=== PATIENT | female | born 1970 | race Caucasian/White ===

== ENCOUNTER 2020-08-09 15:50 | Outpatient (CLI) | payer OTHER, SELFPAY ==
--- NOTE | ~2020-08-09 | MM_ITS ---
EXAMINATION: MM screening [facility] BI w justin HISTORY: Screening mammogram TECHNIQUE: Craniocaudal and mediolateral oblique 3-D tomosynthesis images were obtained and synthetic 2-D images were generated. CAD analysis was submitted and interpreted. COMPARISON: 08/05/2017, 07/22/2017, 12/18/2014 BREAST PARENCHYMAL COMPOSITION: The breasts are almost entirely fatty. FINDINGS: There is no evidence of suspicious mass, calcification, or architectural distortion to sugg est malignancy in either breast. There has been no suspicious interval change. IMPRESSION: 1. No mammographic evidence of malignancy. 2. Recommend routine screening mammography in one year. BI-RADS Category 1: Negative Reviewed, dictated and finalized at location A. GER SHIFT
== END 2020-08-09 15:51 | disposition home or self-care (01) ==
LOC: ANHIMG 15:58
PROVIDERS: PCP Family Medicine; Visit Provider Physician Assistant
DX: Z12.31 Encounter for screening mammogram for malignant neoplasm of breast (principal)
CPT/HCPCS: 77063; 77067

== ENCOUNTER 2020-08-09 16:27 | Outpatient (CLI) | payer OTHER, SELFPAY ==
--- NOTE | ~2020-08-09 | MR_ITS ---
EXAMINATION: MR lumbar spine wo con DATE: 08/09/2020 17:13 INDICATION: Low back pain. TECHNIQUE: Magnetic resonance imaging (MRI) of the lumbar spine was performed without intravenous con trast. Sequences included sagittal T2-weighted FSE, sagittal T2-weighted FS FSE, sagittal T1-weighted FSE, and axial T2-weighted FSE. COMPARISON: Lumbar spine MRI 12/23/2011 FINDINGS: There is 7 degrees levocurvature of lumbar spine. Vertebral body heights are normal. There is a hemangioma in L2 vertebral body. There is mildly decreased disc height at L4-L5 and moderately d ecreased disc height at L5-S1. The distal spinal cord signal intensity is normal. The conus medullari s is at L1-L2. The following disc levels are specifically discussed: L1-L2: There is a right central protrusion. There is mild bilateral facet joint osteoarthritis. There is no neural foraminal stenosis. There is no central canal stenosis. L2-L3: The disc does not extend beyond the endplate margin. There is mild bilateral facet joint osteo arthritis. There is no neural foraminal stenosis. There is no central canal stenosis. L3-L4: The disc does not extend beyond the endplate margin. There is mild bilateral facet joint osteo arthritis. There is no neural foraminal stenosis. There is no central canal stenosis. L4-L5: The disc is bulging and has an annular fissure. There is severe right and moderate left facet joint osteoarthritis. There is mild bilateral neural foraminal stenosis. There is mild central canal stenosis. L5-S1: The disc is bulging and has an annular fissure. There is severe bilateral facet joint osteoart hritis. There is mild bilateral neural foraminal stenosis. There is mild central canal stenosis. IMPRESSION: 1. Moderate lower lumbar spondylosis, worsened from 12/23/2011. Reviewed, dictated and finalized at location B. LINE ENG[employer]
== END 2020-08-09 16:28 ==
PROVIDERS: PCP Family Medicine
DX: M47.896 Other spondylosis, lumbar region (principal)
CPT/HCPCS: 72148

== ENCOUNTER → 2021-01-15 07:07 | Outpatient (CLI) | payer OTHER, SELFPAY ==
[2021-01-15 23:43] LABS: SARS-CoV-2 RNA PCR Negative
== END ==
PROVIDERS: PCP Family Medicine; Visit Provider Family Medicine
DX: Z20.822 Contact with and (suspected) exposure to COVID-19 (principal); R68.89 Other general symptoms and signs
CPT/HCPCS: C9803; U0003; U0005

== ENCOUNTER 2023-01-26 10:28 | Outpatient (CLI) | payer OTHER, SELFPAY ==
--- NOTE | ~2023-01-26 | US_ITS ---
EXAMINATION: US thyroid DATE: 01/26/2023 11:45 INDICATION: Other fatigue. TECHNIQUE: Multiple ultrasound images of the thyroid were obtained. COMPARISON: None. FINDINGS: The right thyroid lobe measures 4.3 x 1.7 x 2.0 cm. The left thyroid lobe measures 5.0 x 1.9 x 2.3 c m. The thyroid is diffusely heterogeneous and hypoechoic with increased vascularity. In the left thy roid lobe, there is a 2.2 cm solid, isoechoic, wider than tall nodule with smooth margin without echo genic foci (TI-RADS TR3). IMPRESSION: 1. Heterogeneous, hypervascular thyroid, consistent with chronic lymphocytic (Emma) thyroiditis. 2. Left thyroid nodule. Thyroid ultrasound is recommended in one year. Reviewed, dictated and finalized at location A. IMPRESSION: 1. Heterogeneous, hypervascular thyroid, consistent with chronic lymphocytic (H ashimoto) thyroiditis. 2. Left thyroid nodule. Thyroid ultrasound is recommended in one year.
== END 2023-01-26 10:29 | disposition home or self-care (01) ==
PROVIDERS: PCP Family Medicine; Visit Provider Physician Assistant
DX: R53.83 Other fatigue (principal); E04.9 Nontoxic goiter, unspecified
CPT/HCPCS: 76536

== ENCOUNTER 2023-03-04 10:42 | Outpatient (CLI) | payer OTHER, SELFPAY ==
--- NOTE | ~2023-03-04 | XR_ITS ---
XR tibia fibula RT 2V DATE: 03/04/2023 11:17 INDICATION: Dog bite; evaluate for osteomyelitis TECHNIQUE: AP and lateral views of the right lower leg COMPARISON: None FINDINGS: No subcutaneous emphysema is noted. Approximately 3 x 6 mm calcific density is noted at the anterior aspect of the distal shaft of the ti kavya on the lateral view, which may represent nonspecific soft tissue calcification or foreign body. No tibial or fibular fracture or dislocation, periosteal reaction or bone destruction. No radiographi c evidence of osteomyelitis is detected. Normal alignment at the knee and ankle joints. IMPRESSION: Small calcific density anterior to the distal tibial shaft, of uncertain significance; cl inical correlation is advised No significant bony abnormality of the tibia or fibula or evidence of osteomyelitis Reviewed, dictated and finalized at location [] IMPRESSION: Small calcific density anterior to the distal tibial shaft, of unce rtain significance; clinical correlation is advised No significant bony abnormality of the tibia or fibula or evidence of osteomyel itis
== END 2023-03-04 10:43 | disposition home or self-care (01) ==
PROVIDERS: PCP Family Medicine; Visit Provider Physician Assistant
DX: S81.851A Open bite, right lower leg, initial encounter (principal); M85.861 Other specified disorders of bone density and structure, right lower leg; W54.0XXA Bitten by dog, initial encounter
CPT/HCPCS: 73590

== ENCOUNTER 2023-03-25 10:22 | Outpatient (CLI) | payer OTHER, SELFPAY ==
--- NOTE | ~2023-03-25 | US_ITS ---
EXAMINATION: US soft tissue LE RT DATE: 03/25/2023 11:17 INDICATION: Dog bite to the right lower leg TECHNIQUE: Multiple ultrasound grayscale images of the region of concern at the right lower leg were obtained. COMPARISON: None. FINDINGS: There is reticulated pattern of edema in the subcutaneous fat extending deep the from the skin surfac e likely representing the site of to the reported puncture injury. The edema tracks away from the site of the puncture injury along the superficial muscular fascia. The re is an adjacent approximately 10 x 10 x 5 mm region of decreased echogenicity extending to the musc ular fascia into one of the muscles of the lateral right calf. There is mild hyperemia both within an d surrounding this region of decreased echogenicity. No organized fluid collections to suggest absces s. No foci of acoustic shadowing to suggest a solid foreign body. IMPRESSION: 1. Edema and hyperemia in the subcutaneous fat and small focus in the deeper musculature in the in t he region of a puncture wound at the skin surface consistent with a soft tissue contusion with focal muscle injury potentially also with associated cellulitis and/or myositis but no drainable abscess or foreign body. Reviewed, dictated and finalized at location A. IMPRESSION: 1. Edema and hyperemia in the subcutaneous fat and small focus in the deeper m usculature in the in the region of a puncture wound at the skin surface consist ent with a soft tissue contusion with focal muscle injury potentially also with associated cellulitis and/or myositis but no drainable abscess or foreign body .
--- NOTE | ~2023-03-25 | US_ITS ---
EXAMINATION: US venous doppler LE RT DATE: 03/25/2023 11:16 INDICATION: Right lower limb pain and swelling TECHNIQUE: Parada scale images without and with compression and Doppler images of the right lower extre mity veins were obtained. COMPARISON: None FINDINGS: The right common femoral vein, profunda femoral vein, femoral vein, popliteal vein, peronea l trunk, posterior tibial veins, and greater saphenous vein are patent. IMPRESSION: 1. Patent right lower extremity veins. No evidence of deep venous thrombosis. Reviewed, dictated and finalized at location []
== END 2023-03-25 10:23 | disposition home or self-care (01) ==
PROVIDERS: PCP Family Medicine; Visit Provider Physician Assistant
DX: S81.859A Open bite, unspecified lower leg, initial encounter (principal); M79.89 Other specified soft tissue disorders; W54.0XXA Bitten by dog, initial encounter
CPT/HCPCS: 76882; 93971

== ENCOUNTER 2023-12-08 09:01 | Outpatient (CLI) | payer OTHER, SELFPAY ==
[2023-12-08 10:54] LABS: Influenza A QL RT-PCR Negative (Negative); Influenza B QL RT-PCR Negative (Negative); RSV RNA, RT-PCR Negative (Negative); SARS-CoV-2 RNA PCR Negative (Negative)
== END 2023-12-08 09:02 | disposition home or self-care (01) ==
LOC: ANHLAB 09:03
PROVIDERS: PCP Family Medicine; Visit Provider Physician Assistant
DX: J02.9 Acute pharyngitis, unspecified (principal); Z20.822 Contact with and (suspected) exposure to COVID-19
CPT/HCPCS: 87637

== ENCOUNTER 2024-04-27 07:52 | Outpatient (CLI) | payer OTHER, SELFPAY ==
--- NOTE | ~2024-04-27 | MM_ITS ---
EXAMINATION: MM screening [facility] BI w justin HISTORY: Screening TECHNIQUE: Craniocaudal and mediolateral oblique 3-D tomosynthesis images were obtained and synthetic 2-D images were generated. CAD analysis was submitted and interpreted. COMPARISON: No prior mammogram is available for comparison at this institution. BREAST PARENCHYMAL COMPOSITION: Comparison to multiple prior studies sequentially, with oldest review ed study dated 12/18/2014. FINDINGS: There are developing low-density masses in the upper inner quadrant of the right breast, mi ddle third. The left breast is stable without evidence for malignancy. IMPRESSION: 1. Developing right breast masses. 2. Additional mammographic views and possible breast ultrasound are recommended. BI-RADS Category 0: Incomplete: Needs additional imaging evaluation. Reviewed, dictated and finalized at location B. IMPRESSION: 1. Developing right breast masses. 2. Additional mammographic views and possible breast ultrasound are recommended . BI-RADS Category 0: Incomplete: Needs additional imaging evaluation.
== END 2024-04-27 07:53 | disposition home or self-care (01) ==
LOC: ANHIMG 07:53
PROVIDERS: PCP Family Medicine; Visit Provider Physician Assistant
DX: Z12.31 Encounter for screening mammogram for malignant neoplasm of breast (principal); R92.8 Other abnormal and inconclusive findings on diagnostic imaging of breast
CPT/HCPCS: 77063; 77067

== ENCOUNTER 2024-05-05 10:14 | Outpatient (CLI) | payer OTHER, SELFPAY ==
--- NOTE | ~2024-05-05 | MMUS_ITS ---
EXAMINATION: MM diagnostic [facility] RT w justin, US breast RT complete HISTORY: Follow-up right breast asymmetries TECHNIQUE: Additional 3-D tomosynthesis images of the right breast were performed and synthetic 2-D i mages were generated. CAD analysis was submitted and interpreted. High resolution complete right jordon st ultrasound was performed. COMPARISON: 04/27/2024 BREAST PARENCHYMAL COMPOSITION: Not dense: There are scattered areas of fibroglandular density. FINDINGS: MAMMOGRAPHIC FINDINGS: There is a 5 mm circumscribed mass in the upper inner quadrant of the right breast, middle third. The re are no suspicious calcifications or architectural distortion. ULTRASOUND: Complete US of all 4 quadrants of the right breast and retroareolar region was reviewed. At 2:00, 5 c m from the nipple there is an oval circumscribed parallel oriented hypoechoic oval mass with thin cap korey measuring 6 mm. No internal vascularity or posterior features, likely benign. IMPRESSION: 1. Probable benign 6 mm right breast mass at 2:00, 5 cm from the nipple. 2. Recommend 6 month follow-up diagnostic right mammogram and Limited right breast ultrasound BI-RADS category 3, probably benign findings. Reviewed, dictated and finalized at location B. IMPRESSION: 1. Probable benign 6 mm right breast mass at 2:00, 5 cm from the nipple. 2. Recommend 6 month follow-up diagnostic right mammogram and Limited right irena ast ultrasound BI-RADS category 3, probably benign findings.
== END 2024-05-05 10:15 | disposition home or self-care (01) ==
LOC: ANHIMG 10:15
PROVIDERS: PCP Family Medicine; Visit Provider Student in an Organized Health Care Education/Training Program
DX: R92.8 Other abnormal and inconclusive findings on diagnostic imaging of breast (principal)
CPT/HCPCS: 76641; 77061; 77065; G0279

== ENCOUNTER 2024-05-23 10:39 | Outpatient (CLI) | payer OTHER, SELFPAY ==
--- NOTE | ~2024-05-23 | US_ITS ---
EXAMINATION: US thyroid DATE: 05/23/2024 12:00 INDICATION: Nontoxic thyroid nodule. TECHNIQUE: Multiple ultrasound images of the thyroid were obtained. COMPARISON: Ultrasound 01/26/2023 FINDINGS: The right thyroid lobe measures 4.1 x 1.4 x 2.2 cm. The left thyroid lobe measures 4.6 x 1.8 x 2.2 c m. The thyroid demonstrates coarsened echotexture. Vascularity is normal. In the left thyroid lobe, there is a 2.5 cm solid, hypoechoic, wider than tall nodule with lobulated margin without echogenic f oci (TI-RADS TR4). IMPRESSION: 1. Heterogeneous thyroid, likely chronic lymphocytic (Emma's) thyroiditis. 2. Left thyroid nodule. Ultrasound-guided fine needle aspiration is recommended. Reviewed, dictated and finalized at location A. IMPRESSION: 1. Heterogeneous thyroid, likely chronic lymphocytic (Emma's) thyroiditis. 2. Left thyroid nodule. Ultrasound-guided fine needle aspiration is recommended .
== END 2024-05-23 10:40 | disposition home or self-care (01) ==
PROVIDERS: PCP Family Medicine; Visit Provider Physician Assistant
DX: E04.1 Nontoxic single thyroid nodule (principal)
CPT/HCPCS: 76536

== ENCOUNTER 2024-07-13 12:16 | Outpatient (CLI) | payer OTHER, SELFPAY ==
--- NOTE | ~2024-07-13 | US_ITS ---
EXAMINATION: US FNA w image guidance DATE: 07/13/2024 13:26 INDICATION: Nontoxic single thyroid nodule TECHNIQUE: A time-out was performed to verify the patient's name, date of , and procedure to be performed . The procedure and its benefits and risks were discussed with the patient. Risks specifically discus sed included bleeding and infection. The patient understood the risks and agreed to proceed. The neck was prepped and draped in the usual sterile manner. 3 mL 1% lidocaine was used for local anesthesia . 6 passes were made with a 25G needle into the lesion. Appropriate needle location was documented with continuous sonographic guidance. A sterile bandage was applied. There were no immediate compli cations. FINDINGS: Grayscale ultrasound images demonstrate biopsy needles advanced into a 2.4 cm heterogeneously hypoech oic solid mass in the left thyroid lobe. IMPRESSION: 1. Successful ultrasound-guided fine needle aspiration of a 2.4 cm TI RADS 4 left thyroid nodule. Reviewed, dictated and finalized at location A. IMPRESSION: 1. Successful ultrasound-guided fine needle aspiration of a 2.4 cm TI RADS 4 l eft thyroid nodule.
== END 2024-07-13 12:17 | disposition home or self-care (01) ==
LOC: ANHIMG 12:16
PROVIDERS: PCP Family Medicine; Visit Provider Physician Assistant
DX: E04.1 Nontoxic single thyroid nodule (principal)
CPT/HCPCS: 10005; 88172; 88173; 88305

== ENCOUNTER 2024-12-05 08:56 | Outpatient (CLI) | payer OTHER, SELFPAY ==
--- NOTE | ~2024-12-05 | MMUS_ITS ---
EXAMINATION: MM diagnostic edson RT w justin, US breast RT limited HISTORY: Six-month follow-up TECHNIQUE: 3-D tomosynthesis images of the right breast were performed and synthetic 2-D images were generated. CAD analysis was submitted and interpreted. High resolution limited right breast ultrasoun d was performed. COMPARISON: 05/05/2024, 04/27/2024, 08/09/2020 BREAST PARENCHYMAL COMPOSITION:Not Dense. There are scattered areas of fibroglandular density. FINDINGS: MAMMOGRAPHIC FINDINGS: Parenchymal pattern right breast is unchanged. Stable 4-5 mm circumscribed mass at the inner right br east. ULTRASOUND: At the 2:00 position right breast, 5 cm from the nipple, there is a stable 5 mm hypoechoic wider than tall circumscribed mass. No posterior shadowing. IMPRESSION: Stable 5 mm mass at the 2:00 position right breast, as detailed above. BI-RADS Category 2: Benign finding(s). Reviewed, dictated and finalized at location M. IMPRESSION: Stable 5 mm mass at the 2:00 position right breast, as detailed above. BI-RADS Category 2: Benign finding(s).
--- OUTSIDE RECORDS SUMMARY | 2024-12-05 09:58 | XMS_ITS | Clinical Summary ---
Author Organization [employer] Address [address] [place] [address] Care Team Providers Care Foam Molder Name Role Phone Raisa Reynolds MD Primary Care Provider U segundo Source Comments [facility],non-owned Affiliates and Associated Physician Practices is amultiple site organization consisting of ambulatory clinics and hospital sitesin [place], [place], [place] and [place]. This disclosure is being madepursuant to the Care Everywhere program and may not contain all information available regarding this patient. Last updated 18.[facility] Allergies No known active allergies Medications * Be aware that medications may not be up to date on this document. Alwaysverify current medications with the patient. Medication Sig Dispensed Refills Start Date End Date Status traZODone (Desyrel) 50 MG tablet Take 1 (one) tablet by mouth once daily Active meloxicam (Mobic) 15 MG tablet Take 1 (one) tablet by mouth once daily Active ipratropium (Atrovent) 0.03 % nasal spray [place] 2 sprays into each nostril 2 times daily 03/29/2024 Active fexofenadine (Marie) 60 MG tablet Take 1 (one) tablet by mouth every 12 hours 01/05/2024 Active estradiol (Estrace) 1 MG tablet Take 1 (one) tablet by mouth once daily 07/18/2024 Active albuterol HFA (Proventil; Ventolin; Proair) 108 (90 Base) MCG/ACT inhaler Inhale 2 (two) puffs by mouth as needed Active acetaminophen (Tylenol) 500 MG tablet Take 2 (two) tablets by mouth every 6 hours as needed Active oxyCODONE, immediate release, (Roxicodone) 5 MG tabletIndications:T hyroid nodule Take 1 (one) tablet by mouth every 6 hours as needed for Pain 12 tablet 09/15/2024 Active Additional Information Patient not taking.Reported on 10/05/2024 fluticasone propionate (Flonase) 50 MCG/ACT nasal spray [place] 1 (one) spray into each nostril 2 times daily 09/11/2024 Active levothyroxine (Synthroid) 25 MCG tablet Take 1 (one) tablet by mouth once daily 90 tablet 4 10/05/2024 Active Active Problems Problem Noted Date Diagnosed Date Thyroid nodule 07/29/2024 Encounters Date Type Department Care Team Description 10/05/2024 1:40 PM MOLD DESIGNER - 10/05/2024 11:59 PM MOLD DESIGNER Hospital Encounter [facility] [address] [place] [address] Discharge Disposition: Home or Self Care 10/05/2024 1:00 PM MOLD DESIGNER Office Visit [facility] [address] [place] [address] [phone] Harshad Solo MD Thyroid nodule (Primary Dx) 10/05/2024 Orders Only [facility] [address] [place] [address] [phone] Harshad Solo MD Abnormal serum thyroid stimulating hormone (TSH) level ; History of lobectomy of thyroid 10/05/2024 Orders Only [facility] [address] [place] [address] [phone] Harshad Solo MD History of lobectomy of thyroid ; Dysphagia, unspecified type; Thyroid nodule 10/05/2024 Travel 09/19/2024 Telephone [facility] [address] [place] [address] [phone] Shantal Son V RN Question 09/15/2024 7:28 AM MOLD DESIGNER Anesthesia Event [facility] [address] [place] [address] Da Bustillo MD Madsen, Jaron, 09/15/2024 7:05 AM MOLD DESIGNER - 09/15/2024 9:50 AM MOLD DESIGNER Surgery [facility] [address] [place] [address] Harshad Solo MD Left thyroid lobectomy 09/15/2024 5:30 AM MOLD DESIGNER - 09/15/2024 1:45 PM MOLD DESIGNER Hospital Encounter [facility] [address] [place] [address] Harshad Solo MD Surgery General Discharge Disposition: Home or Self Care 09/08/2024 12:05 PM MOLD DESIGNER - 09/08/2024 11:59 PM MOLD DESIGNER Hospital Encounter [facility] [address] [place] [address] Harshad Solo MD Discharge Disposition: Home or Self Care 09/08/2024 11:00 AM MOLD DESIGNER - 09/08/2024 12:04 PM MOLD DESIGNER Hospital Encounter [facility] [address] [place] [address] Harshad Solo MD Otolaryngology Discharge Disposition: Home or Self Care from Last 3 Months Social History Tobacco Use Types Packs/Day Years Used Date Smoking Tobacco: Never Smokeless Tobacco: Never Alcohol Use Standard Drinks/Week Comments Yes 0 (1 standard drink = 0.6 oz pur e alcohol) occasionally Sex and Gender Information Value Date Recorded Sex Assigned at Not on file Gender Identity Not on file Sexual Orientation Not on file Last Filed Vital Signs Vital Sign Reading Time Taken Comments Blood Pressure 120/74 10/05/2024 1:23 PM MOLD DESIGNER Pulse 62 10/05/2024 1:23 PM MOLD DESIGNER Temperature 36.7 C (98 F) 09/15/2024 12:04 PM MOLD DESIGNER Respiratory Rate 20 09/15/2024 1:10 PM MOLD DESIGNER Oxygen Saturation 97% 09/15/2024 1:10 PM MOLD DESIGNER Inhaled Oxygen Concentration - - Weight 85.3 kg (188 lb) 10/05/2024 1:23 PM MOLD DESIGNER Height 157.5 cm (5' 2 ) 10/05/2024 1:23 PM MOLD DESIGNER Body Mass Index 34.39 10/05/2024 1:23 PM MOLD DESIGNER Plan of Treatment Health Maintenance Due Date Last Done Comments COLOGUARD (AGES 45-75) - COL ON CA SCREENING 1971 COLON MONITORING 1971 COLONOSCOPY - COLON CA SCREENING 1971 CT COLONOGRAPHY - COLON CA SCREENING 1971 Colorectal Cancer Screening 1971 FIT - COLON CA SCREENING 1971 FLEX SIG - COLON CA SCREENING 1971 LIPID TESTING 1971 PAP SMEAR 1971 HIV SCREENING 1986 HEPATITIS C SCREENING 09/09/1989 DTAP/TDAP/TD VACCINES (1 - Tdap) 1990 HEPATITIS B VACCINE (1 of 3 - 19+ 3-dose series) 1990 MAMMOGRAM 10/11/2015 10/11/2013 PNEUMOCOCCAL VACCINE 50+ (1 of 1 - PCV) 2021 ZOSTER VACCINE (1 of 2) 2021 COVID-19 VACCINE (1 - 2023-2 5 season) 2024 INFLUENZA VACCINE (#1) 2024 DEPRESSION SCREENING 09/28/2024 SCREENING FOR DIABETES 09/08/2027 09/08/2024 HIB VACCINE Aged Out No longer eligi ble based on patient's age to complete this topic HPV VACCINE Aged Out No longer eligi ble based on patient's age to complete this topic MENINGOCOCCAL (Group B) VACCINE Aged Out No longer eligible based on patient's age to complete this topic MENINGOCOCCAL VACCINE Aged Out No zeina blanka eligible based on patient's age to complete this topic Procedures Procedure Name Priority Date/Time Associated Diagnosis Comments T4 FREE Routine 10/05/2024 2:02 PM MOLD DESIGNER Thyroid nodule TSH REFLEX FREE T4 Routine 10/05/2024 2: 02 PM MOLD DESIGNER Thyroid nodule PATHOLOGY TISSUE Routine 09/15/2024 8:21 AM MOLD DESIGNER Thyroid nodule ENDOTRACHEAL TUBE NOTE Routine 09/15/2024 7:46 AM MOLD DESIGNER BLOOD TYPE VERIFICATION STAT 09/15/2024 7:09 AM MOLD DESIGNER LA PARTIAL EXCISION THYROID,UNILAT 09/15/2024 7:05 AM MOLD DESIGNER Thyroid nodule Special Needs Recurrent laryngeal nerve monitoring - NIMS 09/07 BC TYPE + SCREEN PANEL STAT 09/15/2024 6 :00 AM MOLD DESIGNER Thyroid nodule BASIC METABOLIC PANEL (CALCIUM TOTAL) Routine 09/08/2024 12:16 PM MOLD DESIGNER Thyroid nodule CBC W/O DIFFERENTIAL Routine 09/08/2024 12:16 PM MOLD DESIGNER Thyroid nodule from Last 3 Months Results * (ABNORMAL) TSH REFLEX FREE T4 (10/05/2024 2:02 PM MOLD DESIGNER) TSH 5.485(H) 0.350 - 4.940 uIU/mL 10/05/2024 3:18 PM MOLD DESIGNER [facility] Blood BLOOD SPECIMEN / Unknown Lab Venipuncture / Unknown 10/05/2024 2:02 PM MOLD DESIGNER 10/05/2024 2:33 PM MOLD DESIGNER Harshad Solo MD LAB - CHEMISTRY BALAJI JAMES Performing Organization Address City/[facility]/ZIP Co de Phone Number [address] [address], [facility] [phone] * T4 FREE (10/05/2024 2:02 PM MOLD DESIGNER) Pathologist [facility] T4 Free 1.0 0.7 - 1.5 ng/dL 10/05/2024 3:50 PM MOLD DESIGNER [facility] Blood BLOOD SPECIMEN / Unknown Lab Venipuncture / Unknown 10/05/2024 2:02 PM MOLD DESIGNER 10/05/2024 2:33 PM MOLD DESIGNER Harshad Solo MD LAB - CHEMISTRY BALAJI JAMES [address] [address], [facility] [phone] * PATHOLOGY TISSUE (09/15/2024 8:21 AM MOLD DESIGNER) Case Report Surgical Pathology Report Case: [id number] Authorizing Provider: Harshad Solo MD Collected: 09/15/2024 08:21 AM Ordering Location: [facility] Received: 09/15/2024 09:51 AM Pathologist: Greg Felder MD Specimen: Thyroid, Left Lobe, Left Thyroid Lobe Stitch Superior 09/16/2024 12:15 PM [facility] Final Diagnosis Left lobe of thyroid, lobectomy: - 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 - Background changes of diffuse Emma's thyroiditis. - One normocellular parathyroid gland present attached to the thyroid capsule. 09/16/2024 12:15 PM [facility] Microscopic Description and Comment Microscopic examination is performed and supports the final diagnosis. Prominent Hurthle cells are noted, as well as diffuse lymphoid component with reactive germinal centers. Malignancy is not identified. 09/16/2024 12:15 PM [facility] Clinical History Left thyroid lobe lesion 09/16/2024 12:15 PM [facility] Gross Description The requisition and specimen(s) are identified with the patient's name, Melida Stout. Received in formalin, specimen A , is a thyroid lobectomy specimen weighing 7 g and measuring 3.5 x 2.1 x 2.1 cm. The outer surface is slightly roughened with surgical carmella. There is a 2 mm nodular structure adherent to the capsule, indeterminate for parathyroid gland. The outer surface of the lobe is inked as follows: Anterior-blue Posterior-black Isthmus margin-orange Serial sections show a well-circumscribed unencapsulated soft red-miguel nodule measuring 2.5 cm in greatest dimension, in the midportion of the lobe, limited to the lobe. The remainder of the specimen shows firm dark brown tissue. Poultry Farmer Meat sections are submitted as follows: A1: Small nodule attached to capsule A2-A4: Thyroid nodule A4-A6: Additional thyroid lobe tissue/ AL 09/16/2024 12:15 PM [facility] Pathologist Location at [facility] 09/16/2024 12:15 PM [facility] Disclaimer The performance characteristics of all immunohistochemical and indirect immunofluorescence stains (if any) cited in this report were determined by the Histopathology Laboratory of [facility]. Some of these tests were developed by our own laboratory and have not been cleared or approved by the US Food and Drug Administration. The FDA does not require this test to go through premarket FDA review. These tests are used for clinical purposes. They should not be regarded as investigational or for research. This laboratory is certified under the Clinical Laboratory Improvement Amendments (CLIA) as qualified to perform high complexity clinical laboratory testing. This case has been personally reviewed and interpreted by the attending (teaching) pathologist. 09/16/2024 12:15 PM MOLD DESIGNER [facility] Embedded Images 09/16/2024 12:15 PM MOLD DESIGNER [facility] Biopsy, Excision (Thyroid, Left Lobe) 09/15/2024 8:21 AM MOLD DESIGNER 09/15/2024 9:51 AM MOLD DESIGNER Comment:Pre-op diagnosis: Thyroid nodule Harshad Solo MD LAB - PATHOLOGY/CYTO LOGY ORDERABLES [facility] [address] [place], [place] [id number] [place] [address] * ETT LINE PERFORMABLE (09/15/2024 7:46 AM MOLD DESIGNER) Narrative Jeronimo Carranza MD - 09/15/2024 7:46 AM MOLD DESIGNER Jeronimo Carranza MD 09/15/2024 7:47 AM Endotracheal Tube Placement: Patient Location: OR. Intubation Event Date/Time: 09/15/2024 7:39 AM Procedure: intubation ([id number]) Procedure Section: Sedation: under general anesthesia. Indications for Airway Management: anesthesia Procedure pretreatments used? No Induction: standard IV Patient Position: sniffing Mask Ventilation: not attempted. Blade Type: Video Blade Size: 4 Laryngoscopy View: grade 1 (full cords) Intubation Adjuncts: video laryngoscope Tube: nerve integrity monitoring tube Placement: oral Tube type: cuff - inflated Tube Size (MM): 7 Depth of Insertion (CM): 20 Measured From: lips Cuff volume (mL): 8 Cuff Inflated With: air Number of Attempts: 1. Placement Verified By: direct visualization, bilateral breath sounds, chest auscultation and CO2 monitor Tube secured with: adhesive tape. Dentition unchanged? Yes Difficult Airway? No. Procedure Start Time: 09/15/2024 7:39 AM. Staff Section Anesthesia Provider: Jeronimo Carranza MD, Performed the procedure Provider #1: Da Bustillo MD. Da Bustillo MD GENERAL ANESTHESIA O RDERABLES * BLOOD TYPE VERIFICATION (09/15/2024 7:09 AM MOLD DESIGNER) ABO Rh O POS 09/15/2024 8:0 4 AM MOLD DESIGNER [facility] Blood Bank BLOOD SPECIMEN / Unknown Venipuncture / Unknown 09/15/2024 7:09 AM MOLD DESIGNER 09/15/2024 7:21 AM MOLD DESIGNER Harshad Solo MD LAB - BLOOD BANK ORD ERABLES Performing Organization Address City/[facility]/ZIP Co de Phone Number [facility] [address] [place] [address], [place] [phone] * TYPE + SCREEN PANEL (09/15/2024 6:00 AM MOLD DESIGNER) Antibody Screen NEG 6:53 AM MOLD DESIGNER [facility] ABO Rh O POS 09/15/2024 6:53 AM MOLD DESIGNER [facility] Blood Bank BLOOD SPECIMEN / Unknown Venipuncture / Unknown 09/15/2024 6:00 AM MOLD DESIGNER 09/15/2024 6:10 AM MOLD DESIGNER Harshad Solo MD LAB - BLOOD BANK ORD ERABLES Performing Organization Address City/[facility]/ZIP Co de Phone Number [facility] [address] [place] [address], [place] [phone] * CBC W/O DIFFERENTIAL (09/08/2024 12:16 PM MOLD DESIGNER) WBC 7.3 4.0 - 10.7 x10E9/L 09/08/2024 1:[address] [facility] RBC Count 4.29 3.90 - 5.20 x10E12/L 09/08/2024 1:[address] [facility] Hemoglobin 13.9 11.9 - 15.8 g/dL 09/08/2024 1:[address] [facility] Hematocrit 40.7 34.8 - 46.1 % 09/08/2024 1:[address] [facility] MCV 94.9 80.0 - 98.0 fL 09/08/2024 1:[address] [facility] MCH 32.4 26.7 - 33.6 pg 09/08/2024 1:[address] [facility] MCHC 34.2 31.7 - 36.3 g/dL 09/08/2024 1:[address] [facility] RDW-CV 12.1 11.3 - 14.8 % 09/08/2024 1:[address] [facility] Platelet Count 328 150 - 420 x10E9/L 09/08/2024 1:[address] [facility] MPV 9.9 7.8 - 11.4 fL 09/08/2024 1:[address] [facility] Blood BLOOD SPECIMEN / Unknown Lab Venipuncture / Unknown 09/08/2024 12:16 PM MOLD DESIGNER 09/08/2024 12:34 PM MOLD DESIGNER Harshad Solo MD LAB - HEMATOLOGY ORD ERABLES Performing Organization Address [facility] Co de Phone Number [address] [address] [phone] * (ABNORMAL) BASIC METABOLIC PANEL (CALCIUM TOTAL) (09/08/2024 12:16 PM MOLD DESIGNER) BUN 12 7 - 26 mg/dL 09/08/2024 2:[address] [facility] Creatinine 0.80 0.56 - 0.96 mg/dL 09/08/2024 2:[address] [facility] Sodium 138 136 - 145 mmol/L 09/08/2024 2:[address] [facility] Potassium 4.5 3.5 - 4.5 mmol/L 09/08/2024 2:[address] [facility] Chloride 107 98 - 107 mmol/L 09/08/2024 2:[address] [facility] CO2 23 22 - 29 mmol/L 09/08/2024 2:[address] [facility] Glucose 85 70 - 99 mg/dL 09/08/2024 2:[address] [facility] Calcium 9.1 8.4 - 10.2 mg/dL 09/08/2024 2:[address] [facility] Anion Gap 8 6 - 16 09/08/2024 2:36 PM MOLD DESIGNER [facility] BUN/Creatinine Ratio 15 7 - 23 09/08/2024 2:36 PM MOLD DESIGNER [facility] Osmolality Calculated 285 275 - 295 mOsm/kg 09/08/2024 2:36 PM MOLD DESIGNER [facility] eGFR by CKD-EPI 89(L) >=90 mL/min/1.7 3 m2 09/08/2024 2:36 PM MOLD DESIGNER [facility] Blood BLOOD SPECIMEN / Unknown Lab Venipuncture / Unknown 09/08/2024 12:16 PM MOLD DESIGNER 09/08/2024 12:33 PM MOLD DESIGNER Harshad Solo MD LAB - CHEMISTRY BALAJI JAMES [facility] Organization Address City/State/[facility] Co de Phone Number [facility] [address] [place] [address], [place] [phone] from Last 3 Months Care Teams Foam Molder Relationship Specialty Start Date End Date Raisa Reynolds MD [address] [place] [address] PCP - General Family Medicine 07/18/24
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
--- OUTSIDE RECORDS SUMMARY | 2024-12-05 09:58 | XMS_ITS | Referral Summary ---
Author Organization [facility] Address [address] [facility] [place] [address] Care Team Providers Care Trolley Worker Name Role Phone Raisa Reynolds MD Primary Care Provider Diogenes raymond Source Comments [facility],non-owned Affiliates and Associated Physician Practices is amultiple site organization consisting of ambulatory clinics and hospital sitesin [place], [place], [place] and [place]. This disclosure is being madepursuant to the Care Everywhere program and may not contain all information available regarding this patient. Last updated 18.[facility] Encounters Date Type Department Care Team Description 10/05/2024 Orders Only [facility] - [facility] [address] [place] [phone] Harshad Solo MD Abnormal serum thyroid stimulating hormone (TSH) level ; History of lobectomy of thyroid 10/05/2024 1:40 PM CERTIFIED PROFESSIONAL MIDWIFE - 10/05/2024 11:59 PM CERTIFIED PROFESSIONAL MIDWIFE Hospital Encounter [facility] DRAW [facility]ATION [address] [place] [phone] Discharge Disposition: Home or Self Care 10/05/2024 Orders Only [facility] - [facility]NT [address] [place] [address] [phone] Harshad Solo MD History of lobectomy of thyroid ; Dysphagia, unspecified type; Thyroid nodule 10/05/2024 Travel 10/05/2024 1:00 PM CERTIFIED PROFESSIONAL MIDWIFE Office Visit [facility] [address] [place] [address] [phone] Harshad Solo MD Thyroid nodule (Primary Dx) 09/19/2024 Telephone [facility] [address] [facility], [place] [phone] Shantal Son V, RN Question 09/15/2024 7:05 AM CERTIFIED PROFESSIONAL MIDWIFE - 09/15/2024 9:50 AM CERTIFIED PROFESSIONAL MIDWIFE Surgery [facility] [address] [place] [phone] Harshad Solo MD Left thyroid lobectomy 09/15/2024 7:28 AM CERTIFIED PROFESSIONAL MIDWIFE Anesthesia Event [facility] [address] [place] [phone] Da Bustillo MD Madsen, Jaron, DO 09/15/2024 5:30 AM CERTIFIED PROFESSIONAL MIDWIFE - 09/15/2024 1:45 PM CERTIFIED PROFESSIONAL MIDWIFE Hospital Encounter [facility] [address] [place] [phone] Harshad Solo MD Surgery General Discharge Disposition: Home or Self Care 09/08/2024 12:05 PM CERTIFIED PROFESSIONAL MIDWIFE - 09/08/2024 11:59 PM CERTIFIED PROFESSIONAL MIDWIFE Hospital Encounter [facility] OP DRAW [facility] [address] [place] [phone] Harshad Solo MD Discharge Disposition: Home or Self Care 09/08/2024 11:00 AM CERTIFIED PROFESSIONAL MIDWIFE - 09/08/2024 12:04 PM CERTIFIED PROFESSIONAL MIDWIFE Hospital Encounter [facility] [address] [place] [address] Harshad Solo MD Otolaryngology Discharge Disposition: Home or Self Care from Last 3 Months Allergies No known active allergies Medications * [...] Active ipratropium (Atrovent) 0.03 % nasal spray [place]ama 2 sprays into each nostril 2 times [...] fluticasone propionate (Flonase) 50 MCG/ACT nasal spray [place]ama 1 (one) spray into each nostril 2 times daily 09/11/2024 Active levothyroxine (Synthroid) 25 MCG tablet Take 1 (one) tablet by mouth once daily 90 tablet 4 10/05/2024 Active Active Problems Problem Noted Date Diagnosed Date Thyroid nodule 07/29/2024 Social History Tobacco Use Types Packs/Day Years [...] Comments Blood Pressure 120/74 10/05/2024 1:23 PM CERTIFIED PROFESSIONAL MIDWIFE Pulse 62 10/05/2024 1:23 PM CERTIFIED PROFESSIONAL MIDWIFE Temperature 36.7 C (98 F) 09/15/2024 12:04 PM CERTIFIED PROFESSIONAL MIDWIFE Respiratory Rate 20 09/15/2024 1:10 PM CERTIFIED PROFESSIONAL MIDWIFE Oxygen Saturation 97% 09/15/2024 1:10 PM CERTIFIED PROFESSIONAL MIDWIFE Inhaled Oxygen Concentration - - Weight 85.3 kg (188 lb) 10/05/2024 1:23 PM CERTIFIED PROFESSIONAL MIDWIFE Height 157.5 cm (5' 2 ) 10/05/2024 1:23 PM CERTIFIED PROFESSIONAL MIDWIFE Body Mass Index 34.39 10/05/2024 1:23 PM CERTIFIED PROFESSIONAL MIDWIFE Plan of Treatment Not on file Procedures Procedure Name Priority Date/Time Associated Diagnosis Comments T4 FREE Routine 10/05/2024 2:02 PM CERTIFIED PROFESSIONAL MIDWIFE Thyroid nodule TSH REFLEX FREE T4 Routine 10/05/2024 2: 02 PM CERTIFIED PROFESSIONAL MIDWIFE Thyroid nodule PATHOLOGY TISSUE Routine 09/15/2024 8:21 AM CERTIFIED PROFESSIONAL MIDWIFE Thyroid nodule ENDOTRACHEAL TUBE NOTE Routine 09/15/2024 7:46 AM CERTIFIED PROFESSIONAL MIDWIFE BLOOD TYPE VERIFICATION STAT 09/15/2024 7:09 AM CERTIFIED PROFESSIONAL MIDWIFE NC PARTIAL EXCISION THYROID,UNILAT 09/15/2024 7:05 AM CERTIFIED PROFESSIONAL MIDWIFE Thyroid nodule Special Needs Recurrent laryngeal nerve monitoring - NIMS 09/07 BC TYPE + SCREEN PANEL STAT 09/15/2024 6 :00 AM CERTIFIED PROFESSIONAL MIDWIFE Thyroid nodule BASIC METABOLIC PANEL (CALCIUM TOTAL) Routine 09/08/2024 12:16 PM CERTIFIED PROFESSIONAL MIDWIFE Thyroid nodule CBC W/O DIFFERENTIAL Routine 09/08/2024 12:16 PM CERTIFIED PROFESSIONAL MIDWIFE Thyroid nodule from Last 3 Months Results * (ABNORMAL) TSH REFLEX FREE T4 (10/05/2024 2:02 PM CERTIFIED PROFESSIONAL MIDWIFE) TSH 5.485(H) 0.350 - 4.940 uIU/mL 10/05/2024 3:18 PM CERTIFIED PROFESSIONAL MIDWIFE [facility] Blood BLOOD SPECIMEN / Unknown Lab Venipuncture / Unknown 10/05/2024 2:02 PM CERTIFIED PROFESSIONAL MIDWIFE 10/05/2024 2:33 PM CERTIFIED PROFESSIONAL MIDWIFE Harshad Solo MD LAB - CHEMISTRY ORDE ERIKA [address] [address], [facility] [phone] * T4 FREE (10/05/2024 2:02 PM CERTIFIED PROFESSIONAL MIDWIFE) T4 Free 1.0 0.7 - 1.5 ng/dL 10/05/2024 3:50 PM CERTIFIED PROFESSIONAL MIDWIFE [facility] Blood BLOOD SPECIMEN / Unknown Lab Venipuncture / Unknown 10/05/2024 2:02 PM CERTIFIED PROFESSIONAL MIDWIFE 10/05/2024 2:33 PM CERTIFIED PROFESSIONAL MIDWIFE Harshad Solo MD LAB - CHEMISTRY [place] [employer] [facility] [address] [place] [address], [facility] [phone] * PATHOLOGY TISSUE (09/15/2024 8:21 AM CERTIFIED PROFESSIONAL MIDWIFE) Case Report Surgical Pathology Report Case: [id number] Authorizing Provider: Harshad Solo MD Collected: 09/15/2024 08:21 AM Ordering Location: [facility] Received: 09/15/2024 09:51 AM Pathologist: Greg Felder MD Specimen: Thyroid, Left Lobe, Left Thyroid Lobe Stitch Superior 09/16/2024 12:15 PM [facility] Final Diagnosis Left lobe of thyroid, lobectomy: - 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 - Background changes of diffuse Emma's thyroiditis. - One normocellular parathyroid gland present attached to the thyroid capsule. 09/16/2024 12:15 PM [facility] Microscopic Description and Comment Microscopic examination is performed and supports the final diagnosis. Prominent Hurthle cells are noted, as well as diffuse lymphoid component with reactive germinal centers. Malignancy is not identified. 09/16/2024 12:15 PM [facility] Clinical History Left thyroid lobe lesion 09/16/2024 12:15 PM [facility] Gross Description The requisition and [...] the specimen shows firm dark brown tissue. Senior Network Architect sections are submitted as follows: A1: Small nodule attached to capsule A2-A4: Thyroid nodule A4-A6: Additional thyroid lobe tissue/ AL 09/16/2024 12:15 PM [facility] Pathologist Location at [facility] 09/16/2024 12:15 PM [facility] Disclaimer The performance characteristics of all immunohistochemical and indirect immunofluorescence stains (if any) cited in this report were determined by the Histopathology Laboratory of [facility]. Some of these tests were developed by [...] the attending (teaching) pathologist. 09/16/2024 12:15 PM [facility] Embedded Images 09/16/2024 12:15 PM [facility] Biopsy, Excision (Thyroid, Left Lobe) 09/15/2024 8:21 AM CERTIFIED PROFESSIONAL MIDWIFE 09/15/2024 9:51 AM CERTIFIED PROFESSIONAL MIDWIFE Comment:Pre-op diagnosis: Thyroid nodule Harshad Solo MD LAB - PATHOLOGY/CYTO LOGY ORDERABLES Performing Organization Address City/State/[facility] Phone Number [facility] [address] [phone] * ETT LINE PERFORMABLE (09/15/2024 7:46 AM CERTIFIED PROFESSIONAL MIDWIFE) Narrative Jeronimo Carranza MD - 09/15/2024 7:46 AM CERTIFIED PROFESSIONAL MIDWIFE Jeronimo Carranza MD 09/15/2024 7:47 AM Endotracheal Tube Placement: Patient Location: OR. Intubation Event Date/Time: 09/15/2024 7:39 AM Procedure: intubation ([id number]) Procedure Section: Sedation: under general anesthesia. Indications [...] * BLOOD TYPE VERIFICATION (09/15/2024 7:09 AM CERTIFIED PROFESSIONAL MIDWIFE) ABO Rh O POS 09/15/2024 8:0 4 AM CERTIFIED PROFESSIONAL MIDWIFE [facility] Blood Bank BLOOD SPECIMEN / Unknown Venipuncture / Unknown 09/15/2024 7:09 AM CERTIFIED PROFESSIONAL MIDWIFE 09/15/2024 7:21 AM CERTIFIED PROFESSIONAL MIDWIFE Harshad Solo MD LAB - BLOOD BANK ORD ERABLES Performing Organization Address City/[facility] Co de Phone Number [facility] [address] [place] [address], [place] [phone] * TYPE + SCREEN PANEL (09/15/2024 6:00 AM CERTIFIED PROFESSIONAL MIDWIFE) Antibody Screen NEG 6:53 AM CERTIFIED PROFESSIONAL MIDWIFE [facility] ABO Rh O POS 09/15/2024 6:53 AM CERTIFIED PROFESSIONAL MIDWIFE [facility] Blood Bank BLOOD SPECIMEN / Unknown Venipuncture / Unknown 09/15/2024 6:00 AM CERTIFIED PROFESSIONAL MIDWIFE 09/15/2024 6:10 AM CERTIFIED PROFESSIONAL MIDWIFE Harshad Solo MD LAB - BLOOD BANK ORD ERABLES Performing Organization Address City/[facility]/ZIP Co de Phone Number [facility] [address] [place] [address], [place] [phone] * CBC W/O DIFFERENTIAL (09/08/2024 12:16 PM CERTIFIED PROFESSIONAL MIDWIFE) WBC 7.3 4.0 - 10.7 x10E9/L 09/08/2024 1:09 PM [facility] RBC Count 4.29 3.90 - 5.20 x10E12/L 09/08/2024 1:09 PM [facility] Hemoglobin 13.9 11.9 - 15.8 g/dL 09/08/2024 1:09 PM [facility] Hematocrit 40.7 34.8 - 46.1 % 09/08/2024 1:09 PM [facility] MCV 94.9 80.0 - 98.0 fL 09/08/2024 1:09 PM [facility] MCH 32.4 26.7 - 33.6 pg 09/08/2024 1:09 PM [facility] MCHC 34.2 31.7 - 36.3 g/dL 09/08/2024 1:09 PM [facility] RDW-CV 12.1 11.3 - 14.8 % 09/08/2024 1:09 PM [facility] Platelet Count 328 150 - 420 x10E9/L 09/08/2024 1:09 PM [facility] MPV 9.9 7.8 - 11.4 fL 09/08/2024 1:09 PM [facility] Blood BLOOD SPECIMEN / Unknown Lab Venipuncture / Unknown 09/08/2024 12:16 PM CERTIFIED PROFESSIONAL MIDWIFE 09/08/2024 12:34 PM [facility] Harshad Solo MD LAB - HEMATOLOGY ORD ERABLES [facility] [address] [place] [phone], [facility] [phone] * (ABNORMAL) BASIC METABOLIC PANEL (CALCIUM TOTAL) (09/08/2024 12:16 PM CERTIFIED PROFESSIONAL MIDWIFE) Pathologist [facility] BUN 12 7 - 26 mg/dL 09/08/2024 2:36 PM [facility] Creatinine 0.80 0.56 - 0.96 mg/dL 09/08/2024 2:36 PM [facility] Sodium 138 136 - 145 mmol/L 09/08/2024 2:36 PM [facility] Potassium 4.5 3.5 - 4.5 mmol/L 09/08/2024 2:36 PM [facility] Chloride 107 98 - 107 mmol/L 09/08/2024 2:36 PM [facility] CO2 23 22 - 29 mmol/L 09/08/2024 2:36 PM [facility] Glucose 85 70 - 99 mg/dL 09/08/2024 2:36 PM [facility] Calcium 9.1 8.4 - 10.2 mg/dL 09/08/2024 2:36 PM [facility] Anion Gap 8 6 - 16 09/08/2024 2:36 PM [facility] BUN/Creatinine Ratio 15 7 - 23 09/08/2024 2:36 PM [facility] Osmolality Calculated 285 275 - 295 mOsm/kg 09/08/2024 2:36 PM [facility] eGFR by CKD-EPI 89(L) >=90 mL/min/1.7 3 m2 09/08/2024 2:36 PM [facility] Blood BLOOD SPECIMEN / Unknown Lab Venipuncture / Unknown 09/08/2024 12:16 PM CERTIFIED PROFESSIONAL MIDWIFE 09/08/2024 12:33 PM [facility] Harshad Solo MD LAB - CHEMISTRY ORDE [facility] Organization Address City/State/ZIP Co de Phone Number [facility] [address] [place] [address], [facility] [phone] from Last 3 Months Care Teams Trolley Worker Relationship Specialty Start Date End Date Raisa Reynolds MD [address] [place] [address] PCP - General Family Medicine 07/18/24
--- OUTSIDE RECORDS SUMMARY | 2024-12-05 09:58 | XMS_ITS | Data Portability ---
Author Organization [facility] Address [address] [place] [address] Care Team Providers Care Import Export Agent Name Role Phone CANDACE ISAACS Primary Care Provider Assessment No assessment recorded. Plan of Treatment Reminders Order Date Submit Date Provider Last Modified By Organization Details Last Modified Time Details Appointments None recorded. Lab None recorded. Referral None recorded. Procedures None recorded. Surgeries None recorded. Imaging None recorded. Medication Orders estradiol 1 mg tablet 2023 024 [email or web address] [id number], [address] [place], [address], 4 14:37:25 Patient TargetsNo targets recorded. Patient InstructionsNo instructions recorded. Reason for Referral None Reported. Problems Name Problem SNOMED Code Status Onset Date Resolution Date Notes Provider Name and Address Organization Details Recorded Time Must strain to pass urine [id number] Active 2017 Straining to void;Recor ded Elsewhere: No Locatio n: [facility] Jessica rce: EHR Chroni c: N Practice ID: [id number] Billa ble Time: 03:30:00 PM Not Available [facility] 0 15:27:53 Pelvic and perineal pain 081850537 Active 2017 Pelvic and perineal pain;Recor ded Elsewhere: No Locatio n: [facility] Jessica rce: EHR Chroni c: N Practice ID: 0001 Billa ble Time: 02:30:00 PM Not Available [facility] 0 15:27:53 Cyst of ovary Active 2017 Ovarian cyst, NOS;Record ed Elsewhere: No Locatio n: [facility] rce: EHR Chroni c: N Practice ID: 0001 Billa ble Time: 10:15:00 AM Not Available [facility] 0 15:27:53 Finding of desire for urination 113111582 Active 2017 Urgency of urination; Recorded Elsewhere: No Locatio n: [facility] rce: EHR Chroni c: N Practice ID: 0001 Billa ble Time: 03:30:00 PM Not Available [facility] 0 15:27:[address] Concept Active 2017 Encntr for belt sewer exam (general) (routine) w/o abn findings;R ecorded Elsewhere: No Locatio n: 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 Procedures Surgical History Date Name Laterality Status Provider Name and Address Organization Details Recorded Time 04/28/20 Date of Last Mammogram completed Sangeeta Chris [facility] 07/18/2024 09:39:55 09/28/19 23 Date of Last Colonoscopy completed [facility] 07/18/2024 09:40:54 09/28/19 22 procedure on neck completed [facility] 07/18/2024 09:50:51 09/28/19 19 complete repair of rotator cuff completed [facility] 07/18/2024 09:50:01 04/13/20 18 Date of Last Pap Smear completed [facility] 07/18/2024 09:38:41 09/28/19 18 Total Hysterectomy completed [facility] 07/18/2024 09:46:07 09/28/18 92 Dilation and Curettage completed [facility] 07/18/2024 09:49:09 09/28/18 90 termination of completed [facility] 07/18/2024 09:49:44 Imaging Results None recorded. Procedure Notes None recorded. Medical Equipment None Reported. Allergies No known drug allergies Medications Name Sig Start Date Stop Date Status Note LastModified by Organization Details LastModified Time cyclobenz aprine 10 mg tablet take 1 tablet by oral route 3 times every day 07/07 completed Prescrib ed Elsewher e: Yes Loca tion: [facility] M odify By: amkuhrichi Rosales ncounter DateTime : 04/12/20 18 10:30:00 AM Not Available Not Available Not Available prednison e 10 mg tablet TAKE 4 TABLETS BY MOUTH DAILY X3 DAYS, THEN DECREASE BY 1 TABLET EVERY 3 DAYS UNTIL ALL ARE TAKEN 07/18 completed Not Available Not Available Not Available oxybutyni n chloride ER 15 mg tablet,ex tended release 24 hr take 1 tablet by oral route every day 07/18 completed Prescrib ed Elsewher e: No Locat ion: [facility] odify By: [email or web address] Encounte r DateTime : 07/21/20 03:30:00 PM Not Available Not Available Not Available trazodone 50 mg tablet TAKE 1 TABLET BY MOUTH EVERYDAY AT BEDTIME active Not Available Not Available No t Available fexofenad ine 60 mg tablet TAKE 1 TABLET BY MOUTH EVERY 12 HOURS 07/18 completed Not Available Not Available Not Available ibuprofen 800 mg tablet take 1 tablet by oral route 3 times every day with food 07/18 completed Prescrib ed Elsewher e: Yes Loca tion: [facility] odify By: thomas carcamo DateTime : 07/21/20 18 03:30:00 PM Not Available Not Available Not Available Adderall 5 mg tablet take 1 tablet by oral route 2 times every day before breakfas t and at noon 07/07 completed Prescrib ed Elsewher e: Yes Loca tion: [facility] odify By: thomas carcamo DateTime : 04/12/20 18 10:30:00 AM Not Available Not Available Not Available meloxicam 15 mg tablet TAKE 1 TABLET BY MOUTH EVERY DAY active Not Available Not Available No t Available estradiol 0.05 mg/24 hr weekly transderm al patch apply 1 patch by transder mal route every week 07/18 completed Prescrib ed Elsewher e: Yes Loca tion: [facility] odify By: amvenu carcamo DateTime : 07/21/20 18 03:30:00 PM Not Available Not Available Not Available sulfameth oxazole 800 mg-trimet hoprim 160 mg tablet TAKE 1 TABLET BY MOUTH EVERY 12 HOURS FOR 5 DAYS 07/18 completed Not Available Not Available Not Available hydrocodo ne 10 mg-acetam inophen 325 mg tablet take 1 tablet by oral route every 4 - 6 hours as needed for pain 07/07 completed Prescrib ed Elsewher e: Yes Loca tion: [facility] odify By: amvenu carcamo DateTime : 04/12/20 18 10:30:00 AM Not Available Not Available Not Available estradiol 1 mg tablet TAKE 1 TABLET BY MOUTH EVERY DAY 2023 active Not Available Not Available Not Avai lable benzonata te 100 mg capsule TAKE 2 CAPSULES BY MOUTH THREE TIMES A DAY NEEDED FOR COUGH 07/18 completed Not Available Not Available Not Available Xanax 0.25 mg tablet take 1 tablet by oral route 3 times every day 07/07 completed Prescrib ed Elsewher e: Yes Loca tion: [facility] odify By: amvenu Rosales ncounter DateTime : 04/12/20 18 10:30:00 AM Not Available Not Available Not Available levothyro xine 50 mcg tablet TAKE 1 TABLET BY MOUTH EVERY DAY 07/18 completed Not Available Not Available Not Available dexametha sone 4 mg tablet TAKE 1 TABLET BY MOUTH TWICE A DAY FOR 3 DAYS THEN 0.5 TABLET TWICE A DAY FOR 3 DAYS 07/18 completed Not Available Not Available Not Available zolpidem 10 mg tablet take 1 tablet by oral route every day at bedtime 07/18 completed Prescrib ed Elsewher e: No [facility] By: lorri kelly DateTime : 09/29/19 03:27:37 PM Not Available Not Available Not Available albuterol sulfate HFA 90 mcg/actua tion aerosol inhaler INHALE 1 PUFF BY MOUTH EVERY 4 HOURS NEEDED FOR WHEEZE OR FOR SHORTNES S OF BREATH active Not Available Not Available No t Available Lane 5 mg-325 mg tablet take 1-2 tablet by oral route every 4-6 hours as needed for pain 07/21 completed Prescrib ed Elsewher e: No Locat ion: [facility] odify By: amkuhrichi Rosales ncounter DateTime : 05/24/20 18 10:26:19 AM Not Available Not Available Not Available fluticaso ne propionat e 50 mcg/actua tion nasal spray,davina pension SPRAY 1 SPRAY INTO EACH NOSTRIL TWICE A DAY active Not Available Not Available No t Available Ambien 5 mg tablet take 1 tablet by oral route every day at bedtime 07/18 completed Prescrib ed Elsewher e: Yes [facility] By: amkuhrichi Rosales ncounter DateTime : 07/21/20 03:30:00 PM Not Available Not Available Not Available ipratropi um bromide 21 mcg (0.03 %) nasal spray USE 2 SPRAYS INTO EACH NOSTRIL TWICE A DAY 07/18 completed Not Available Not Available Not Available amoxicill in 875 mg-potass ium clavulana te 125 mg tablet TAKE 1 TABLET BY MOUTH EVERY 12 HOURS 07/18 completed Not Available Not Available Not Available Premarin 1.25 mg tablet TAKE 1 TABLET BY MOUTH EVERY DAY CYCLICAL LY 07/18 completed Not Available Not Available Not Available nitrofura ntoin monohydra te/macroc rystals 100 mg capsule TAKE 1 CAPSULE BY MOUTH TWICE DAILY FOR 5 DAYS 07/18 completed Not Available Not Available Not Available Myrbetriq 25 mg tablet,ex tended release take 1 tablet by oral route every day swallowi ng whole with water. Do not crush, chew and/or divide. 07/18 completed Prescrib ed Elsewher e: Yes [facility]oca [facility]ion[facility] odify By: amkuhrichi Rosales ncounter DateTime : 07/21/20 03:30:00 PM Not Available Not Available Not Available Vitals Date Recorded Body height Body mass index (BMI) Body weight Systolic blood pressure Diastolic blood pressure Provider Name and Address Organization Details Last Updated DateTime 07/18/2024 157.48 cm 33.3 kg/m2 17367.81 g 131 mm[Hg] 83 mm[Hg] Sangeeta Perez [facility] 4 09:35:57 Social History Question Answer Notes LastModified by Organizat ion Details LastModified Time What Is Your Level Of Alcohol Consumption? Occasional Information not available 07/18/2024 What Is Your Level Of Caffeine Consumption? None Information not available 07/18/2024 In The 14 Days Before Symptom Onset, Have You Had Close Contact With A Laboratory-confirm ed COVID-19 While That Case Was Ill? No Information n ot available 07/18/2024 In The 14 Days Before Symptom Onset, Have You Had Close Contact With A Person Who Is Under Investigation For COVID-19 While That Person Was Ill? No Information not available 07/18/2024 Have You Been To An Area Known To Be High Risk For COVID-19? No Information not available 07/18/2024 What Type Of Diet Are You Following? REGULAR Information n ot available 07/18/2024 What Is The Highest Grade Or Level Of School You Have Completed Or The Highest Degree You Have Received? 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 No Information not available 07/18/2024 How Much Tobacco Do You Smoke? No Information not available 07/18/2024 Do You Use Any Illicit Or Recreational Drugs? No Information not available 07/18/2024 Have You Used IV Drugs? No Information not available 07/18/2024 Sex: Unknown Functional Status Question Answer Note LastModified by Organizat ion Details LastModified Time What is your exercise level? Occasional Information not available 07/18/2024 Mental Status None recorded. Family History Relationship Description Onset Age of this Age Resolved Age Notes LastModified by Organization Details LastModified Time Mother Diabetes mellitus Not available 2023 09:44:31 Mother Malignant lymphoma Not available 2023 09:45:26 Mother Heart disease Not available 2023 09:45:37 Notes:Mother: Diabetes melli tus, Heart disease Medical History Condition Response Other N Blood Transfusion N Dermatologic Disorders N Gestational Diabetes N Anxiety Disorder Y Autoimmune disease N Arthritis N Polyps N Infertility N Acid Reflux (GERD) N Cancer N Varicosities N Stroke N Neurologic/Epilepsy N Fibromyalgia N Headaches N Kidney Disease N Heart Problems N Kidney or Bladder Problems N Eating Disorder N Art (IVF or FET) N Hepatitis/Liver Disease N No Past Medical History N Urinary Tract Infection N Asthma N Trauma/Violence N Thrombophilias N Allergies (Food, seasonal, environmental ) N Breast Cancer N Drug/Latex Allergies/Reactions N Lung Disease N Defects or Inherited Disease N Breast Problem Y Hematologic disorders N Anesthesia Complications N History of STI N Deep Vein Thrombosis N Polycystic ovary syndrome N History of abnormal pap N Endometriosis N High Cholesterol N Thyroid Problems N GI Problems N Anemia N Psychiatric Illness N Ovarian Cancer N Diabetes N Pulmonary (TB, Asthma) N Eczema N Abuse/Domestic Violence N Depression/ depression Y Heart Disease N Pre-Eclampsia N Hypertension N Osteoporosis N Gynecological History Statement/Question Response Date of Last Mammogram 04/28/2024 Date of LMP 09/28/2016 On BCP's at Conception? N N STIs/STDs N HPV Vaccine N Current Control Method Hysterectom y Age at First Child 17 Date of Last Colonoscopy 09/28/2022 Sexually Active? N Menses Monthly N Age of first menstrual cycle 14 Date of Last Pap Smear 04/13/2018 Sexual Problems? Y LMP Unknown N Obstetrics History GPAL:G 5 P 0 0 2 3 Type Value Induced 1 Spontaneous 1 Living 3 Total 5 Past Encounters Encounter ID Performer Location Encounter Start Date Encounter Closed Date Diagnosis/Indication Diagnosis SNOMED-CT Code Diagnosis ICD10 Code Diagnosis Note [id number] Jose Rowan MD [facility] [address] [address] 07/18/2024 09:09:55 07/18/2024 13:30:59 Menopausal symptom 76998816 N95.1 discussed menopausal symptoms. They are severe. Discussed her breast findings. The sound benign. Seven follow-up mammogram in 6 months. To obtain ultrasound images of the breast to confirm low suspicion. Patient understand s the risks. She understand s the risk, benefits, and alternativ es. She was given precaution s instructio ns. I spent over 30 minutes on the patient's care. Health Concerns Section Related Observation LastModified by Organization Detai ls LastModified Time None Recorded Concern Status LastModified by Organization Details LastModified Time None Recorded Advance Directives Directive None Recorded Payers Encounter Date Sequence Insurance Name Policy Number Policy Duong Covered Member ID Duong Member ID Guarantor Name 07/18/2024 1 [facility] [id number] Melida Stout [id number] Melida Stout Notes Date Note Type Note Provider Name and Address Organization Details Recorded Time 4 text/html MenopauseReported bypatient.Onset/Timing :2-5 years Quality:night sweats; sleep issues Severity:severe Duration:prolonged Alleviating Factors:none Associated Symptoms:no abdominal pain; no pelvic pain; no abnormal bleeding; no vaginal discharge; no dysuria; no dispareunia Jose Rowan MD [address], [place], [address], [facility] 07/18/2024 13:21:13 OBGyn Episode Ob Episode Information Episode Created Date Number of Fetuses Patient Bloodtype Patient rh Status Prepregnancy Weight lbs Domestic Partner Domestic Partner Phone Father Name Controls Operator Molded Goods Status 07/18/20 24 1 CLOSED Fetus Data First Name Last Name Admitted to NICU Weight (g) Sex Living Outcome Pediatric Complications Fetus ID Race Codes Race Delivery Type , Induced [id number] [place] Calculation Initial [place] Date Initial Exam Date Initial Exam Provider Initial Ultrasound Date Last Menstrual Period Date Ultra Sound Weeks Gestation 0 Eighteen To Twenty Week Salvador Update Ultra Sound Date Fundal Height At Umbil Quickening Date Ultra Sound Latest Weeks Gestation Final [place] Confirmed By Final [place] Confirmed Date Final [place] Date Ultra Sound Latest Days Gestation 0 0 Menstrual History Last Menstrual Date Menses Monthly On Bcp Conception Prior Menses Frequency Hcg Plus Date Menarche Onset Age Delivery Information Delivery Date Delivery Type Labor Anesthesia Weeks Gestation Incision Type Labor Labor Length Hrs Delivered By Post Complications Tubal Sterilization Discharge Date Comments 0 Discharge Information Feeding Method Contraceptive Method Maternal HG B and HCT Levels Ob Episode Information Episode Created Date Number of Fetuses Patient Bloodtype Patient rh Status Prepregnancy Weight lbs Domestic Partner Domestic Partner Phone Father Name Controls Operator Molded Goods Status 07/18/20 24 1 CLOSED Fetus Data First Name Last Name Admitted to NICU Weight (g) Sex Living Outcome Pediatric Complications Fetus ID Race Codes Race Delivery Type Ectopic [id number] [place] Calculation Initial [place] Date Initial Exam Date Initial Exam Provider Initial Ultrasound Date Last Menstrual Period Date Ultra Sound Weeks Gestation 0 Eighteen To Twenty Week Salvador Update Ultra Sound Date Fundal Height At Umbil Quickening Date Ultra Sound Latest Weeks Gestation Final [place] Confirmed By Final [place] Confirmed Date Final [place] Date Ultra Sound Latest Days Gestation 0 0 Menstrual History Last Menstrual Date Menses Monthly On Bcp Conception Prior Menses Frequency Hcg Plus Date Menarche Onset Age Delivery Information Delivery Date Delivery Type Labor Anesthesia Weeks Gestation Incision Type Labor Labor Length Hrs Delivered By Post Complications Tubal Sterilization Discharge Date Comments 2 Discharge Information Feeding Method Contraceptive Method Maternal HG B and HCT Levels Ob Episode Information Episode Created Date Number of Fetuses Patient Bloodtype Patient rh Status Prepregnancy Weight lbs Domestic Partner Domestic Partner Phone Father Name Controls Operator Molded Goods Status 07/18/20 24 1 CLOSED Fetus Data First Name Last Name Admitted to NICU Weight (g) Sex Living Outcome Pediatric Complications Fetus ID Race Codes Race Delivery Type M Full Term [id number] Vaginal Delivery Salvador Calculation Initial Salvador Date Initial Exam Date Initial Exam Provider Initial Ultrasound Date Last Menstrual Period Date Ultra Sound Weeks Gestation 0 Eighteen To Twenty Week Salvador Update Ultra Sound Date Fundal Height At Umbil Quickening Date Ultra Sound Latest Weeks Gestation Final [place] Confirmed By Final [place] Confirmed Date Final [place] Date Ultra Sound Latest Days Gestation 0 0 Menstrual History Last Menstrual Date Menses Monthly On Bcp Conception Prior Menses Frequency Hcg Plus Date Menarche Onset Age Delivery Information Delivery Date Delivery Type Labor Anesthesia Weeks Gestation Incision Type Labor Labor Length Hrs Delivered By Post Complications Tubal Sterilization Discharge Date Comments 3 Discharge Information Feeding Method Contraceptive Method Maternal HG B and HCT Levels Ob Episode Information Episode Created Date Number of Fetuses Patient Bloodtype Patient rh Status Prepregnancy Weight lbs Domestic Partner Domestic Partner Phone Father Name Controls Operator Molded Goods Status 07/18/20 24 1 CLOSED Fetus Data First Name Last Name Admitted to NICU Weight (g) Sex Living Outcome Pediatric Complications Fetus ID Race Codes Race Delivery Type M Full Term [id number] Vaginal Delivery Salvador Calculation Initial Salvador Date Initial Exam Date Initial Exam Provider Initial Ultrasound Date Last Menstrual Period Date Ultra Sound Weeks Gestation 0 Eighteen To Twenty Week Salvador Update Ultra Sound Date Fundal Height At Umbil Quickening Date Ultra Sound Latest Weeks Gestation Final [place] Confirmed By Final [place] Confirmed Date Final [place] Date Ultra Sound Latest Days Gestation 0 0 Menstrual History Last Menstrual Date Menses Monthly On Bcp Conception Prior Menses Frequency Hcg Plus Date Menarche Onset Age Delivery Information Delivery Date Delivery Type Labor Anesthesia Weeks Gestation Incision Type Labor Labor Length Hrs Delivered By Post Complications Tubal Sterilization Discharge Date Comments 8 Discharge Information Feeding Method Contraceptive Method Maternal HG B and HCT Levels Ob Episode Information Episode Created Date Number of Fetuses Patient Bloodtype Patient rh Status Prepregnancy Weight lbs Domestic Partner Domestic Partner Phone Father Name Controls Operator Molded Goods Status 07/18/20 24 1 CLOSED Fetus Data First Name Last Name Admitted to NICU Weight (g) Sex Living Outcome Pediatric Complications Fetus ID Race Codes Race Delivery Type M Full Term [id number] Vaginal Delivery Salvador Calculation Initial Salvador Date Initial Exam Date Initial Exam Provider Initial Ultrasound Date Last Menstrual Period Date Ultra Sound Weeks Gestation 0 Eighteen To Twenty Week Salvador Update Ultra Sound Date Fundal Height At Umbil Quickening Date Ultra Sound Latest Weeks Gestation Final [place] Confirmed By Final [place] Confirmed Date Final [place] Date Ultra Sound Latest Days Gestation 0 0 Menstrual History Last Menstrual Date Menses Monthly On Bcp Conception Prior Menses Frequency Hcg Plus Date Menarche Onset Age Delivery Information Delivery Date Delivery Type Labor Anesthesia Weeks Gestation Incision Type Labor Labor Length Hrs Delivered By Post Complications Tubal Sterilization Discharge Date Comments 0 Discharge Information Feeding Method Contraceptive Method Maternal HG B and HCT Levels
--- OUTSIDE RECORDS SUMMARY | 2024-12-05 09:58 | XMS_ITS | Patient Health Summary ---
Author Organization [facility] Address [address] [place] [address] Care Team Providers Care Accreditation Specialist Name Role Phone Raisa Reynolds MD Primary Care Provider Diogenes raymond Note from [facility],non-owned Affiliates and Associated Physician Practices is amultiple site organization consisting of ambulatory clinics and hospital sitesin [place], [place], [place] and [place]. This disclosure is being madepursuant to the Care Everywhere program and may not contain all information available regarding this patient. Last updated 18.[facility] Allergies No known active allergies Medications * Be aware that medications may not be up to date on this document. Alwaysverify current medications with the patient. * traZODone (Desyrel) 50 MG tablet Take 1 (one) tablet by mouth once daily * meloxicam (Mobic) 15 MG tablet Take 1 (one) tablet by mouth once daily * ipratropium (Atrovent) 0.03 % nasal spray(Started 03/29/2024) Hestand 2 sprays into each nostril 2 times daily * fexofenadine (Marie) 60 MG tablet(Started 01/05/2024) Take 1 (one) tablet by mouth every 12 hours * estradiol (Estrace) 1 MG tablet(Started 07/18/2024) Take 1 (one) tablet by mouth once daily * albuterol HFA (Proventil; Ventolin; Proair) 108 (90 Base) MCG/ACT inhaler Inhale 2 (two) puffs by mouth as needed * acetaminophen (Tylenol) 500 MG tablet Take 2 (two) tablets by mouth every 6 hours as needed * oxyCODONE, immediate release, (Roxicodone) 5 MG tablet(Started 09/15/2024) Take 1 (one) tablet by mouth every 6 hours as needed for Pain * fluticasone propionate (Flonase) 50 MCG/ACT nasal spray(Started 09/11/2024) Hestand 1 (one) spray into each nostril 2 times daily * levothyroxine (Synthroid) 25 MCG tablet(Started 10/05/2024) Take 1 (one) tablet by mouth once daily 4 refills by 10/05/2025 Active Problems Problem Noted Date Diagnosed Date [...] Comments Blood Pressure 120/74 10/05/2024 1:23 PM SENIOR NET SOFTWARE ENGINEER Pulse 62 10/05/2024 1:23 PM SENIOR NET SOFTWARE ENGINEER Temperature 36.7 C (98 F) 09/15/2024 12:04 PM SENIOR NET SOFTWARE ENGINEER Respiratory Rate 20 09/15/2024 1:10 PM S[employer]IOR NET SOFTWARE ENGINEER Oxygen Saturation 97% 09/15/2024 1:10 PM SENIOR NET SOFTWARE ENGINEER Inhaled Oxygen Concentration - - Weight 85.3 kg (188 lb) 10/05/2024 1:23 PM SENIOR NET SOFTWARE ENGINEER Height 157.5 cm (5' 2 ) 10/05/2024 1:23 PM SENIOR NET SOFTWARE ENGINEER Body Mass Index 34.39 10/05/2024 1:23 PM SENIOR NET SOFTWARE ENGINEER Procedures * T4 FREE(Performed 10/05/2024) Performed for Thyroid nodule * TSH REFLEX FREE T4(Performed 10/05/2024) Performed for Thyroid nodule * PATHOLOGY TISSUE(Performed 09/15/2024) Performed for Thyroid nodule * ENDOTRACHEAL TUBE NOTE(Performed 09/15/2024) * BLOOD TYPE VERIFICATION(Performed 09/15/2024) * WY PARTIAL EXCISION THYROID,UNILAT(Performed 09/15/2024) Performed for Thyroid nodule * TYPE + SCREEN PANEL(Performed 09/15/2024) Performed for Thyroid nodule * BASIC METABOLIC PANEL (CALCIUM TOTAL)(Performed 09/08/2024) Performed for Thyroid nodule * CBC W/O DIFFERENTIAL(Performed 09/08/2024) Performed for Thyroid nodule * WY LARYNGOSCOPY,FLEX FIBER,DIAGNOSTIC(Performed 07/29/2024) Performed for Dysphagia, unspecified type Results * (ABNORMAL) TSH REFLEX FREE T4 (10/05/2024 2:02 PM SENIOR NET SOFTWARE ENGINEER) Pathologist [facility] TSH 5.485(H) 0.350 - 4.940 uIU/mL 10/05/2024 3:18 PM SENIOR NET SOFTWARE ENGINEER [facility] Blood BLOOD SPECIMEN / Unknown Lab Venipuncture / Unknown 10/05/2024 2:02 PM SENIOR NET SOFTWARE ENGINEER 10/05/2024 2:33 PM SENIOR NET SOFTWARE ENGINEER Harshad Solo MD LAB - CHEMISTRY BALAJI JAMES [address] [address], [facility] [phone] * T4 FREE (10/05/2024 2:02 PM SENIOR NET SOFTWARE ENGINEER) Pathologist [facility] T4 Free 1.0 0.7 - 1.5 ng/dL 10/05/2024 3:50 PM SENIOR NET SOFTWARE ENGINEER [facility] Blood BLOOD SPECIMEN / Unknown Lab Venipuncture / Unknown 10/05/2024 2:02 PM SENIOR NET SOFTWARE ENGINEER 10/05/2024 2:33 PM SENIOR NET SOFTWARE ENGINEER Harshad Solo MD LAB - CHEMISTRY BALAJI JAMES [address] [address], [place] [phone] * PATHOLOGY TISSUE (09/15/2024 8:21 AM SENIOR NET SOFTWARE ENGINEER) Pathologist [facility] Case Report Surgical Pathology Report Case: [id number] Authorizing Provider: Harshad Solo MD Collected: 09/15/2024 08:21 AM Ordering Location: [facility] Received: 09/15/2024 09:51 AM Pathologist: Greg Felder MD Specimen: Thyroid, Left Lobe, Left Thyroid Lobe Stitch Superior 09/16/2024 12:15 PM SENIOR NET SOFTWARE ENGINEER [facility] Final Diagnosis Left lobe of thyroid, lobectomy: - 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 - Background changes of diffuse Emma's thyroiditis. - One normocellular parathyroid gland present attached to the thyroid capsule. 09/16/2024 12:15 PM [facility] Microscopic Description and Comment Microscopic examination is performed and supports the final diagnosis. Prominent Hurthle cells are noted, as well as diffuse lymphoid component with reactive germinal centers. Malignancy is not identified. 09/16/2024 12:15 PM [facility] Clinical History Left thyroid lobe lesion 09/16/2024 12:15 PM [facility] Gross Description The requisition and [...] the specimen shows firm dark brown tissue. Dump Operator sections are submitted as follows: A1: Small nodule attached to capsule A2-A4: Thyroid nodule A4-A6: Additional thyroid lobe tissue/ AL 09/16/2024 12:15 PM [facility] Pathologist Location at [facility] 09/16/2024 12:15 PM [facility] Disclaimer The performance characteristics of all immunohistochemical and indirect immunofluorescence stains (if any) cited in this report were determined by the Histopathology Laboratory of [facility]. Some of these tests were developed by [...] the attending (teaching) pathologist. 09/16/2024 12:15 PM SENIOR NET SOFTWARE ENGINEER [facility] Embedded Images 09/16/2024 12:15 PM SENIOR NET SOFTWARE ENGINEER [facility] Biopsy, Excision (Thyroid, Left Lobe) 09/15/2024 8:21 AM SENIOR NET SOFTWARE ENGINEER 09/15/2024 9:51 AM SENIOR NET SOFTWARE ENGINEER Comment:Pre-op diagnosis: Thyroid nodule Harshad Solo MD LAB - PATHOLOGY/CYTO LOGY ORDERABLES [facility] [address] [place] [address], [facility] [phone] * ETT LINE PERFORMABLE (09/15/2024 7:46 AM SENIOR NET SOFTWARE ENGINEER) Narrative Jeronimo Carranza MD - 09/15/2024 7:46 AM SENIOR NET SOFTWARE ENGINEER Jeronimo Carranza MD 09/15/2024 7:47 AM Endotracheal Tube Placement: Patient Location: OR. Intubation Event Date/Time: 09/15/2024 7:39 AM Procedure: intubation (66064) Procedure Section: Sedation: under general anesthesia. Indications [...] * BLOOD TYPE VERIFICATION (09/15/2024 7:09 AM SENIOR NET SOFTWARE ENGINEER) ABO Rh O POS 09/15/2024 8:0 4 AM SENIOR NET SOFTWARE ENGINEER [facility] Blood Bank BLOOD SPECIMEN / Unknown Venipuncture / Unknown 09/15/2024 7:09 AM SENIOR NET SOFTWARE ENGINEER 09/15/2024 7:21 AM SENIOR NET SOFTWARE ENGINEER Harshad Solo MD LAB - BLOOD BANK ORD ERABLES [facility] [address] [place] [address], [facility] [phone] * TYPE + SCREEN PANEL (09/15/2024 6:00 AM SENIOR NET SOFTWARE ENGINEER) Antibody Screen NEG 6:53 AM [facility] ABO Rh O POS 09/15/2024 6:53 AM [facility] Blood Bank BLOOD SPECIMEN / Unknown Venipuncture / Unknown 09/15/2024 6:00 AM SENIOR NET SOFTWARE ENGINEER 09/15/2024 6:10 AM SENIOR NET SOFTWARE ENGINEER Harshad Solo MD LAB - BLOOD BANK ORD ERABLES [facility] [address] [place] [address], [facility] [phone] * CBC W/O DIFFERENTIAL (09/08/2024 12:16 PM SENIOR NET SOFTWARE ENGINEER) WBC 7.3 4.0 - 10.7 x10E9/L 09/08/2024 1:09 PM [facility] RBC Count 4.29 3.90 - 5.20 x10E12/L 09/08/2024 1:09 PM [facility] Hemoglobin 13.9 11.9 - 15.8 g/dL 09/08/2024 1:09 PM [facility] Hematocrit 40.7 34.8 - 46.1 % 09/08/2024 1:09 PM [facility] MCV 94.9 80.0 - 98.0 fL 09/08/2024 1:09 PM [facility] MCH 32.4 26.7 - 33.6 pg 09/08/2024 1:09 PM [facility] MCHC 34.2 31.7 - 36.3 g/dL 09/08/2024 1:09 PM [facility] RDW-CV 12.1 11.3 - 14.8 % 09/08/2024 1:09 PM [facility] Platelet Count 328 150 - 420 x10E9/L 09/08/2024 1:09 PM [facility] MPV 9.9 7.8 - 11.4 fL 09/08/2024 1:09 PM [facility] Blood BLOOD SPECIMEN / Unknown Lab Venipuncture / Unknown 09/08/2024 12:16 PM SENIOR NET SOFTWARE ENGINEER 09/08/2024 12:34 PM SENIOR NET SOFTWARE ENGINEER Harshad Solo MD LAB - HEMATOLOGY ORD ERABLES [facility] [address] [place] [address], [facility] [phone] * (ABNORMAL) BASIC METABOLIC PANEL (CALCIUM TOTAL) (09/08/2024 12:16 PM SENIOR NET SOFTWARE ENGINEER) BUN 12 7 - 26 mg/dL 09/08/2024 2:36 PM [facility] Creatinine 0.80 0.56 - 0.96 mg/dL 09/08/2024 2:36 PM [facility] Sodium 138 136 - 145 mmol/L 09/08/2024 2:36 PM [facility] Potassium 4.5 3.5 - 4.5 mmol/L 09/08/2024 2:36 PM [facility] Chloride 107 98 - 107 mmol/L 09/08/2024 2:36 PM [facility] CO2 23 22 - 29 mmol/L 09/08/2024 2:36 PM [facility] Glucose 85 70 - 99 mg/dL 09/08/2024 2:36 PM [facility] Calcium 9.1 8.4 - 10.2 mg/dL 09/08/2024 2:36 PM [facility] Anion Gap 8 6 - 16 09/08/2024 2:36 PM [facility] BUN/Creatinine Ratio 15 7 - 23 09/08/2024 2:36 PM [facility] Osmolality Calculated 285 275 - 295 mOsm/kg 09/08/2024 2:36 PM SENIOR NET SOFTWARE ENGINEER [facility] eGFR by CKD-EPI 89(L) >=90 mL/min/1.7 3 m2 09/08/2024 2:36 PM SENIOR NET SOFTWARE ENGINEER [facility] Blood BLOOD SPECIMEN / Unknown Lab Venipuncture / Unknown 09/08/2024 12:16 PM SENIOR NET SOFTWARE ENGINEER 09/08/2024 12:33 PM SENIOR NET SOFTWARE ENGINEER Harshad Solo MD LAB - CHEMISTRY BALAJI JAMES [facility] [address] [place] [address], [facility] [phone] * WY LARYNGOSCOPY,FLEX FIBER,DIAGNOSTIC (07/29/2024 11:29 AM CDT) Narrative Harshad Solo MD - 07/29/2024 11:29 AM CDT Harshad Solo MD 07/29/2024 11:30 AM Procedure Note Endoscopy Type: Laryngoscopy Endoscope: 4mm flexible nasopharyngoscopy Anesthesia: topical lidocaine Procedure Details: The patient was sitting upright in a chair with the head in a slightly anterior sniffing position. The endoscope was passed through the nasal cavity with the tongue retracted anteriorly. The tip of the endoscope was positioned in the oropharynx which allowed a complete view of the base of tongue, vallecula, pyriform recesses, epiglottis, bilateral true and false vocal folds, the interarytenoid and post cricoid region, and the immediate subglottis. Findings: True vocal folds move well with no evidence of mass or other abnormality. Condition: Stable. Patient tolerated procedure well. Complications: None Harshad Solo MD PROCEDURE/MINOR SURG ICAL ORDERABLES Care Teams Accreditation Specialist Relationship Specialty Start Date End Date Raisa Reynolds MD [address] [place] [address] PCP - General Family Medicine 07/18/24
== END 2024-12-05 08:57 | disposition home or self-care (01) ==
LOC: ANHIMG 09:02
PROVIDERS: PCP Family Medicine; Visit Provider Student in an Organized Health Care Education/Training Program
DX: R92.8 Other abnormal and inconclusive findings on diagnostic imaging of breast (principal)
CPT/HCPCS: 76642; 77061; 77065; G0279